=== PATIENT | female | born 1965 | race Caucasian/White ===

== ENCOUNTER 2020-08-17 06:37 | Inpatient (IN) | payer BC, OTHER ==
[~2020-08-17] VITALS: Ht 162.6 cm; Wt 104.3 kg
[2020-08-17 06:58] VITALS: BP 172/87
[2020-08-17] MEDS ORDERED: LIPITOR10 MG PO (07:01)
[2020-08-17] MEDS ORDERED: CEPHALEXIN500 MG PO (07:01)
--- NOTE | 2020-08-17 08:13 | NUR ---
PT NOTES RIGHT FLANK PAIN FOR THE PAST FEW DAYS. PT STATES GOING TO [facility] YEST[facility]DAY DX WITH UTI AND STARTED ON KEFLEX, PT NOTES SHE HAS HAD X3 DOSES. PT STATES HX OF KIDNEY STONE SHE THINKS ABOUT X10 YEARS AGO. PT DENIES HAVING TO HAVE SX FOR REMOVAL. PT STATES URINARY FREQUENCY AND HEISTENCY, PT DENIES LATOSHA BLOOD IN URINE. PT DENIES NAUSEA OR VOMITING. PT IS ALERT AND ORIENTED X4, PT HUSTON, PT SKIN PWD, VSS ON RA, CALL LIGHT ENCOURAGED TO USE
[2020-08-17 08:19] LABS: URINE BILIRUBIN NEGATIVE (Negative); URINE BLOOD 3+ (Negative); URINE CLARITY SL CLOUDY; URINE COLOR YELLOW; URINE GLUCOSE-RANDOM* NEGATIVE (Negative); URINE KETONES NEGATIVE (Negative); URINE LEUKOCYTES-REFLEX NEGATIVE (Negative); URINE NITRITE-REFLEX NEGATIVE (Negative); URINE PROTEIN (DIPSTICK) TRACE (Negative); URINE SPECIFIC GRAVITY >= 1.030 (1.005-1.035); URINE UROBILINOGEN 0.2 E.U./dl (0.2-1.0)
[2020-08-17 08:23] LABS: ABSOLUTE NEUTROPHILS 8.9 thou/uL (1.4-8.2); BASOPHILS 0.5 % (0.0-2.0); EOSINOPHILS 0.7 % (0.0-3.0); HEMATOCRIT 40.5 % (37.0-47.0); HEMOGLOBIN 13.2 gm/dL (12.0-15.0); LYMPHOCYTES 18.9 % (24.0-44.0); MCH 27.4 pg (26.0-34.0); MCHC 32.7 g/dL (28.0-37.0); MCV 83.8 fL (80.0-100.0); MONOCYTES 5.7 % (1.0-8.0); PLATELET COUNT 421 thou/uL (150-400); POLYS 74.2 % (36.0-66.0); RBC 4.83 mil/uL (4.20-5.00); RDW 13.7 % (10.5-14.5)
[2020-08-17 08:31] LABS: CALCIUM 8.9 mg/dL (8.5-10.1); CREATININE 0.8 mg/dL (0.6-1.0); POTASSIUM 3.9 mmol/L (3.5-5.1)
[2020-08-17 08:38] LABS: ALBUMIN 3.6 g/dL (3.4-5.0); TOTAL BILIRUBIN 0.3 mg/dL (0.2-1.0); TOTAL PROTEIN 7.2 g/dL (6.4-8.2)
[2020-08-17 09:08] LABS: SQUAMOUS 0-3 Few /LPF (0-3)
[2020-08-17 09:09] LABS: BACTERIA-REFLEX 1-9 Few /HPF (None Seen); CASTS None Seen /LPF (None Seen); CRYSTALS None Seen /LPF (None Seen); URINE RBC >20 Many /HPF (NONE SEEN); URINE WBC-REFLEX 0-5 Rare /HPF (0-5)
[2020-08-17 13:22] VITALS: BP 146/68
[2020-08-17 13:47] VITALS: BP 155/67
[2020-08-17] MEDS ORDERED: MELOXICAM7.5 MG PO (14:20)
[2020-08-17] MEDS ORDERED: CLARITIN-D 241 EAC1 PO (14:21)
--- NOTE | 2020-08-17 14:41 | NUR ---
ASSESSMENT: CM REVIEWED CHART AND MET WITH PATIENT AT THE BEDSIDE. PT IS ALERT AND ORIENTED X4. PT WAS ADMITTED DUE TO RIGHT FLANK PAIN AND HAS RENAL STONE. UROLOGY HAS BEEN CONSULTED AND WORKING ON PAIN CONTROL FOR PATIENT. PT REPORTS LIVING IN A HOUSE WITH HER AND SON. PT IS FULLY INDEPENDENT WITH ADLS AND AMBULATION. PT DENIES HAVING HH IN THE PAST. CM DISCUSSED ROLE. PT DOES NOT ANTICIPATE HAVING ANY NEEDS FROM CM PRIOR TO DISCHARGE. CM WILL CONTINUE TO FOLLOW TO ASSIST NEEDED.
[2020-08-17 15:25] VITALS: BP 155/73
--- NOTE | 2020-08-17 15:34 | NUR ---
ASSUMED PT CARE THIS AM. PT IS ALERT & ORIENTED X4. PT HAS IV SITE ON R AC SALINE LOCKED. PT IS UP AD ROSAURA. PT IS ON ROOM AIR. PT RATED PAIN 7/10 ON R FLANK AND GIVEN PAIN MEDICATION PER REQUEST. PT IS ON ROOM AIR. INFORMED PT THAT NEEDED TO STRAIN URINE. NO C/O OF NAUSEA AND VOMITING. FINISHED ADMISSION AND MEDICATION RECONCILIATION. PT ON THE BED WATCHING TV, BED ON THE LOWEST POSITION, SIDE RAILS UP, CALL LIGHT WITHIN REACH. WILL CONTINUE TO MONITOR PT. FOLLOW POC.
[2020-08-17 21:31] VITALS: BP 141/68
--- NOTE | 2020-08-18 03:26 | NUR ---
UPON SHIFT ASSESSMENT, PT AOX4 AND LETHARGIC. PT DENIES PAIN AND SOB WHILE ON ROOM AIR. PT TOLERATING PO INTAKE OF FLUIDS AND CLEAR LIQUID DIET WITHOUT ISSUE. PT WITHOUT NAUSEA OR EMESIS. PT AMBULATING INDEPENDENTLY IN ROOM AND TO BATHROOM, RESTING IN BED OTHERWISE. FREQUENT REPOSITIONING ENCOURAGED WHILE IN BED, PT NOTED TO SHIFT INDEPENDENTLY. SENSATION INTACT, CAPILLARY REFILL LESS THAN 3SEC, PERIPHERAL PULSES PALPABLE IN ALL EXTREMITIES. PT ENCOURAGED TO NOTIFY STAFF FOR ALL NEEDS, CALL LIGHT WITHIN REACH, BED LOCKED IN LOWEST POSITION, FREQUENT MONITORING WILL CONTINUE.
[2020-08-18 05:22] LABS: HEMATOCRIT 37.6 % (37.0-47.0); HEMOGLOBIN 12.5 gm/dL (12.0-15.0); MCH 27.8 pg (26.0-34.0); MCHC 33.3 g/dL (28.0-37.0); MCV 83.7 fL (80.0-100.0); RBC 4.5 mil/uL (4.20-5.00); WBC 10.3 thou/uL (4.0-11.0)
[2020-08-18 05:51] LABS: CALCIUM 8.4 mg/dL (8.5-10.1); CREATININE 0.7 mg/dL (0.6-1.0); POTASSIUM 3.9 mmol/L (3.5-5.1)
[2020-08-18 07:36] VITALS: BP 145/78
[2020-08-18] MEDS ORDERED: NORCO5 PO (09:39)
[2020-08-18 10:09] VITALS: BP 145/78
--- NOTE | 2020-08-18 11:04 | NUR ---
Assumed pt care at 7am.Pt in bed resting with slight pain to rt flank. Assessment completed.vss.Candi MCINTYRE here,stated that pt can dc home today after breakfast.Dr King notified,he rounded on pt and dc order noted.Breakfast ordered and given to pt.Dc summary compile and reviewed with pt.Rx to be corn picker by pt on her way home.Pt dc home with strainer for urine.Saline lock dc'd. At 1055,pt dc home ambulatory in stable condition.
--- NOTE | 2020-08-18 11:07 | NUR ---
ON-GOING ASSESSMENT: PT HAD ORDERS TO DISCHARGE HOME TODAY NO NEEDS.
== END 2020-08-18 10:53 | disposition home or self-care (01) | DRG 694 ==
LOC: ER 06:37 → EROBS 12:50 → 4S 13:44
PROVIDERS: Emergency Medicine; ADMIT Hospitalist; ATTEND Hospitalist
DX: N13.2 Hydronephrosis with renal and ureteral calculous obstruction (principal); E78.5 Hyperlipidemia, unspecified; Z87.442 Personal history of urinary calculi; Z90.710 Acquired absence of both cervix and uterus; Z90.49 Acquired absence of other specified parts of digestive tract; Z79.899 Other long term (current) drug therapy
CPT/HCPCS: 10195